=== PATIENT | female | born 1960 | race Caucasian/White ===

== ENCOUNTER → 2020-08-24 | Outpatient (CLI) | payer MEDICAID | LOC: M.MRI 08-08 11:30 | PROVIDERS: ATTEND Orthopaedic Surgery | DX: S83.242A Other tear of medial meniscus, current injury, left knee, initial encounter (principal); S82.142A Displaced bicondylar fracture of left tibia, initial encounter for closed fracture; X58.XXXA Exposure to other specified factors, initial encounter; Y93.89 Activity, other specified; Y92.89 Other specified places as the place of occurrence of the external cause; Y99.8 Other external cause status ==

== ENCOUNTER 2020-10-02 06:44 | Inpatient (IN) | payer MEDICAID ==
[~2020-10-02] VITALS: Ht 165.1 cm; Wt 81.6 kg
[~2020-10-02 06:44] MED LIST: BENAZEPRIL HCL20 MG PO; DULOXETINE HCL60 MG PO; FOSAMAX 70 MG T70 MG PO; MELOXICAM15 MG PO; MICARDIS HCT 41 EACH PO; MICARDIS40 MG PO; OMEPRAZOLE 20 M20 M1 PO; VITAMIN D31250 MC1 PO; XANAX1 MG PO
[2020-10-02 11:22] VITALS: BP 147/97
--- NOTE | 2020-10-02 17:30 | EKG ---
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
[2020-10-02 17:49] VITALS: BP 140/95
[2020-10-03 00:25] VITALS: BP 134/92
[2020-10-03 04:53] VITALS: BP 119/78
[2020-10-03 04:53] LABS: HEMATOCRIT 31.9 % (37.0-47.0); HEMOGLOBIN 10.7 gm/dL (12.0-15.0)
[2020-10-03 07:25] VITALS: BP 146/85
[2020-10-03 12:24] VITALS: BP 146/85
--- NOTE | 2020-10-04 10:24 | OP ---
[address] [address] OPERATIVE REPORT Name: MALLORYMAI Room: [address] M.R.#: [id number] Admission: 10/02/20 Attend Phys: Giana King Discharge: 10/03/20 Date of : 62 Report #: [id number] THIS REPORT FOR: cc: Ant Dewitt James DO Greiner, Robert F. II DO ~ DOC #: [id number] Misael Garcia II, DO DATE OF SURGERY: 10/02/2020 PREOPERATIVE DIAGNOSIS: Left knee osteoarthritis. POSTOPERATIVE DIAGNOSIS: Left knee osteoarthritis. PROCEDURE: Left total knee arthroplasty. SURGEON: Misael Garcia II, DO [employer] CLERK: None. ANESTHESIA: General endotracheal. ESTIMATED BLOOD LOSS: 50 mL. ANTIBIOTICS: ____ preoperatively. DRAINS: Medium Hemovac. COMPLICATIONS: None. CONDITION: The patient stable to recovery room. IMPLANTS: Listed in the operative record and progress note. BRIEF HISTORY: The patient was seen in the preoperative area. Preoperative H and P was performed, site was marked, questions were answered. Risks and benefits were discussed with the patient in detail about surgery. The patient wished to proceed assuming all risks. DESCRIPTION OF PROCEDURE: The patient was taken to the operative suite, placed supine on the operating table with appropriate anesthesia. A well-padded tourniquet applied to the upper thigh, which was inflated to 300 mmHg after gravity exsanguination. The operative knee was sterilely prepped and draped. Surgery began with a midline incision. This was carried down to subcutaneous tissues. A medial parapatellar arthrotomy was performed, carried down to bone. Patella was then everted and excess soft tissue [place] [address] OPERATIVE REPORT Name: MAI TEJADA Room: [address] IN [facility].#: [id number] Admission: 10/02/20 Attend Phys: Giana King Discharge: 10/03/20 Date of : 62 Report #: [id number] Femoral cutting block was then applied, checked with a drop rotation alignment, pinned in appropriate position, appropriate cuts were made. The 4-in-1 cutting block was then applied, checked for rotation alignment, pinned in appropriate position, appropriate cuts were made. The tibia was then exposed. Excess meniscus was removed. Retractors were placed on collateral ligaments. The tibial cutting block was then applied, pinned in appropriate position, checked with a drop rotation alignment and slope and appropriate cut was made. The tibial bone was removed. Tibial base plate was then applied, checked for rotation alignment with a drop angelito and pinned in appropriate position. The femur was then applied and box cut was reamed. This was then trialed with an appropriate spacer, which showed excellent fit and fill and excellent stability of the knee through all range of motion. The patella was reamed to appropriate fashion, sized to appropriate size, 3 peg holes were drilled and it was then trialed. It showed excellent flexion and extension and excellent tracking of the patella within the groove. These trials were removed and the tibia was punched in appropriate fashion. Bone ends were cleansed with Pulsavac irrigation and cement was mixed and applied to final implants. These were malleted into position and held the knee in extension and compressed to allow the cement to cure. After it cured, excess was removed with a [place] and osteotome. Wound was then copiously irrigated and the final spacer was then malleted in position. Tourniquet was deflated. Hemostasis was maintained with electrocautery. The pain cocktail was injected medially. A median Hemovac drain was applied. Capsule was closed with #2 FiberWire and #1 Vicryl in [id number] fashion. Skin was closed with 2-0 Vicryl and a running 3-0 Monocryl. Dermabond and sterile dressing applied. Steve wrap and Polar Care applied. The patient transported to recovery in stable condition. Counts were correct throughout the procedure. Misael Garcia II, DO RFG/SUB <ELECTRONICALLY SIGNED> By: Misael Garcia II, DO 10/04/20 1024 [id number] Garcia II, DO /nt
== END 2020-10-03 14:10 | disposition home or self-care (01) | DRG 470 ==
LOC: M.ORTHSURG 06:44 → M.TBA 09:55 → M.ORTHSURG 17:31
PROVIDERS: Orthopaedic Surgery; ADMIT Internal Medicine; ATTEND Internal Medicine
PROC: 0SRD0J9 Replacement of Left Knee Joint with Synthetic Substitute, Cemented, Open Approach (ICD-10-PCS; principal; 2020-10-02)
PROC: 3E0T3BZ Introduction of Anesthetic Agent into Peripheral Nerves and Plexi, Percutaneous Approach (ICD-10-PCS; 2020-10-02)
DX: M17.12 Unilateral primary osteoarthritis, left knee (principal); I10 Essential (primary) hypertension; K21.9 Gastro-esophageal reflux disease without esophagitis; M81.0 Age-related osteoporosis without current pathological fracture; Z79.899 Other long term (current) drug therapy